=== PATIENT | female | born 1940 | race Caucasian/White ===

== ENCOUNTER 2017-10-23 22:04 | Emergency (ER) | payer MEDICARE, OTHER ==
[2017-10-23] MEDS ORDERED: Sodium Chloride 0.9% 10 ML Syringe FLUSH PRN (22:33)
[2017-10-23] MEDS ORDERED: GI Cocktail Oral Solution 30 ML PO ONE (22:33)
--- NOTE | 2017-10-23 22:41 | EDM.PDOC ---
ED HPI GENERAL MEDICAL PROBLEM - General Chief Complaint: Chest Pain Stated Complaint: chest pain Time Seen by Provider: 10/23/17 22:19 Source of Information: Reports: Patient History Limitations: Reports: No Limitations - History of Present Illness INITIAL COMMENTS - FREE TEXT/NARRATIVE: Patient presents to emergency room this evening with complaints of midsternal chest pain. She states that it started approximately 30-45 minutes ago. She states that she was watching TV in her recliner when it started. Patient reports her last meal being about 5:30 this evening. She does have a history of GERD. She is not endorse increased pain with movement, diaphoresis, shortness of breath, blood in her urine or stool, she also does not endorse nausea or vomiting. She does also state that she has some intermittent dizziness. Patient has medical history does include hypertension, hypercholesterolemia, urinary incontinence, hypothyroidism,diabetes, arthritis, chronic pain. She denies any prior myocardial infarctions or strokes. She also denies any current use of anticoagulation except for the use of daily baby aspirin's. Denies any history of irregular heartbeat. She states her mother had a stroke at the age of 78 but lived for another 8 years after that. Her father at the age of 93. She is not aware of any sibling history of heart disease. She is a nonsmoker. Rare alcohol use on social occasions. No illicit drug use. Patient's primary provider is in [place]. She has not frequented this hospital in quite some time. She does also state that the pain is reproducible substernally on palpation. She is also dealing with some new life stressors including the recent diagnosis of Alzheimer's in her . Onset: Today, Sudden Onset Date: 10/23/17 Onset Time: 21:45 Duration: Intermittent Location: Reports: Chest Quality: Reports: Other (cramp like) Severity: Moderate Improves with: Reports: None Worsens with: Reports: Other (palpation) Associated Symptoms: Reports: Chest Pain - Related Data Allergies Allergy/AdvReac Type Severity Reaction Status Date / Time atorvastatin [From Lipitor] Allergy Muscle Verified 10/23/17 22:12 Aches fluvastatin [From Lescol] Allergy Muscle Verified 10/23/17 22:12 Aches Home Meds: Home Meds Acetaminophen with Codeine [Acetaminophen-Cod #3] 1 - 2 tab PO Q4H PRN 10/23/17 [History] Aspirin [Halfprin] 81 mg PO DAILY 10/23/17 [History] Calcium Carbonate [Calci-Chew] 500 mg PO QID PRN 10/23/17 [History] Calcium Carbonate [Calcium] 600 mg PO BEDTIME 10/23/17 [History] Celecoxib [CeleBREX] 200 mg PO DAILY 10/23/17 [History] Cholecalciferol (Vitamin D3) [Vitamin D3] 1,000 units PO DAILY 10/23/17 [History ] Fenofibrate 160 mg PO BEDTIME 10/23/17 [History] Levothyroxine [Synthroid] 50 mcg PO BEDTIME 10/23/17 [History] Lisinopril 40 mg PO DAILY 10/23/17 [History] Multivitamin [Daily Lele] 1 each PO DAILY 10/23/17 [History] NIFEdipine [Procardia Xl] 60 mg PO DAILY 10/23/17 [History] Oxybutynin Chloride [Ditropan Xl] 10 mg PO DAILY 10/23/17 [History] Pantoprazole Sodium [Protonix] 40 mg PO DAILY 10/23/17 [History] Rosuvastatin [Crestor] 0.5 tab PO BEDTIME 10/23/17 [History] metFORMIN [Glucophage] 500 mg PO DAILY 10/23/17 [History] Past Medical History Cardiovascular History: Reports: High Cholesterol, Hypertension Gastrointestinal History: Reports: GERD Genitourinary History: Reports: Urinary Incontinence Musculoskeletal History: Reports: Osteoarthritis Psychiatric History: Reports: Anxiety Endocrine/Metabolic History: Reports: Diabetes, Type II, Hypothyroidism - Past Surgical History HEENT Surgical History: Reports: Cataract Surgery Musculoskeletal Surgical History: Reports: Arthroscopic Knee Social & Family History - Tobacco Use Smoking Status *Q: Never Smoker ED ROS GENERAL - Review of Systems Review Of Systems: ROS reveals no pertinent complaints other than HPI. ED EXAM, GENERAL - Physical Exam Exam: See Below Exam Limited By: No Limitations General Appearance: Alert, WD/WN, No Apparent Distress Eye Exam: Bilateral Eye: EOMI, PERRL Ears: Normal TMs Nose: Normal Inspection, Normal Mucosa, No Blood Throat/Mouth: Normal Inspection, Normal Lips, Normal Teeth, Normal Gums, Normal Oropharynx, Normal Voice, No Airway Compromise Head: Atraumatic, Normocephalic Neck: Normal Inspection, Supple, Non-Tender, Full Range of Motion Respiratory/Chest: No Respiratory Distress, Lungs Clear, Normal Breath Sounds, No Accessory Muscle Use, Chest Non-Tender Cardiovascular: Normal Peripheral Pulses, Regular Rate, Rhythm, No Edema, No Gallop, No JVD, No Murmur, No Rub Peripheral Pulses: 2+: Posterior Tibial (L), Posterior Tibial (R), Dorsalis Pedis (L), Dorsalis Pedis (R) GI/Abdominal: Normal Bowel Sounds, Soft, Non-Tender, No Organomegaly, No Distention, No Abnormal Bruit, No Mass Back Exam: Normal Inspection, Full Range of Motion, NT Extremities: Normal Inspection, Normal Range of Motion, Non-Tender, Normal Capillary Refill, No Pedal Edema Neurological: Alert, Oriented, CN II-XII Intact, Normal Cognition, Normal Gait, Normal Reflexes, No Motor/Sensory Deficits Psychiatric: Normal Affect, Normal Mood Skin Exam: Warm, Dry, Intact, Normal Color, No Rash Lymphatic: No Adenopathy EKG INTERPRETATION EKG Date: 10/23/17 Time: 22:07 Rhythm: NSR Rate (Beats/Min): 66 (with 1st degree AV block) [place]: Normal P-Wave: Present QRS: Normal ST-T: Normal QT: Normal Comparison: NA - No Prior EKG Course - Vital Signs Last Recorded V/S: Last Vital Signs Temp 36.8 C 10/23/17 22:12 Pulse 68 10/23/17 22:12 Resp 20 10/23/17 22:12 BP 177/78 H 10/23/17 22:12 Pulse Ox 100 10/23/17 22:12 - Re-Assessments/Exams Free Text/Narrative Re-Assessment/Exam: 10/23/17 23:45 X-ray, EKG, labs all negative for ACS type symptoms Departure - Departure Time of Disposition: 23:49 Disposition: Home, Self-Care 01 Condition: Good Clinical Impression: Atypical chest pain, Costochondral chest pain Instructions: Nonspecific Chest Pain, [id number], Costochondritis, Easy-to- Read Additional Instructions: All of your labs, x-ray, and ekg are negative for a heart attack this evening. Your chest pain could be the result of anxiety, inflammation of the tissue in between your ribs, arthritis. Take some tylenol for additional pain relief. Stay well hydrated. Follow up with your primary doctor as symptoms warrant. Please call us with any questions or concerns. Return as needed. - Problem List & Annotations (1) Atypical chest pain SNOMED Code(s): 048660972 Code(s): R07.89 - OTHER CHEST PAIN Status: Acute Priority: Low Current Visit: Yes (2) Costochondral chest pain SNOMED Code(s): 367109911 Code(s): R07.1 - CHEST PAIN ON BREATHING Status: Acute Priority: Low Current Visit: Yes - Problem List Review Problem List Initiated/Reviewed/Updated: Yes - Assessment/Plan Assessment:: costochondritis Plan: All of your labs, x-ray, and ekg are negative for a heart attack this evening. Your chest pain could be the result of anxiety, inflammation of the tissue in between your ribs, arthritis. Take some tylenol for additional pain relief. Stay well hydrated. Follow up with your primary doctor as symptoms warrant. Please call us with any questions or concerns. Return as needed.
[2017-10-23] MEDS ORDERED: Morphine 2 MG/ML Syringe IVPUSH ONE (23:07)
== END 2017-10-24 00:02 | disposition home or self-care (01) ==
LOC: VM.ED 22:04
DX: M94.0 Chondrocostal junction syndrome [Tietze] (principal); E11.9 Type 2 diabetes mellitus without complications; K21.9 Gastro-esophageal reflux disease without esophagitis; M19.90 Unspecified osteoarthritis, unspecified site; I10 Essential (primary) hypertension; E78.00 Pure hypercholesterolemia, unspecified; Z79.82 Long term (current) use of aspirin; Z79.899 Other long term (current) drug therapy; Z88.8 Allergy status to other drugs, medicaments and biological substances; Z79.84 Long term (current) use of oral hypoglycemic drugs
CPT/HCPCS: 71045; 80053; 84443; 84484; 85025; 85610; 93005; 96374; 99285; A9270; J2270; 99284-GF

== ENCOUNTER 2020-05-27 19:15 | Emergency (ER) | payer MEDICARE, OTHER ==
--- NOTE | 2020-05-27 19:54 | EDM.PDOC ---
ED HPI GENERAL MEDICAL PROBLEM - General Chief Complaint: General Stated Complaint: COVID positive Time Seen by Provider: 05/27/20 19:35 Source of Information: Reports: Patient History Limitations: Reports: No Limitations - History of Present Illness INITIAL COMMENTS - FREE TEXT/NARRATIVE: Veena is an 80 year old female who presents with complaints of chest tightness. States has had since Friday, not improving or worsening. Has been checking her oxygen sat at home and has consistently been 97-98%. had been taking Mucinex at home. Relates did receive a positive COVID result yesterday after being done on Friday. Probable exposure was on Friday at a restaurant. States several other ladies at the table also tested positive but many don't have symptoms. She denies sinus congestion. Does note PND. Temp at high has been 99.8. Minimal cough. States chest feels heavy. No sore throat, no nausea/vomiting/diarrhea. No loss of taste or smell. Contacted [facility] Ask a Nurse and was advised to be seen Duration: Day(s):, Constant Location: Reports: Chest Quality: Reports: Pressure Severity: Mild Worsens with: Reports: Movement Associated Symptoms: Reports: Cough, Fever/Chills, Malaise, Shortness of Breath. Denies: Confusion, Chest Pain, cough w sputum, Headaches, Loss of Appetite, Nausea/Vomiting - Related Data Allergies Allergy/AdvReac Type Severity Reaction Status Date / Time atorvastatin [From Lipitor] Allergy Muscle Verified 05/27/20 19:21 Aches fluvastatin [From Lescol] Allergy Muscle Verified 05/27/20 19:21 Aches Home Meds: Home Meds Aspirin [Halfprin] 81 mg PO DAILY 10/23/17 [History] Calcium Carbonate [Calci-Chew] 500 mg PO QID PRN 10/23/17 [History] Calcium Carbonate [Calcium] 600 mg PO BEDTIME 10/23/17 [History] Celecoxib [CeleBREX] 200 mg PO DAILY 10/23/17 [History] Cholecalciferol (Vitamin D3) [Vitamin D3] 1,000 units PO DAILY 10/23/17 [History] Levothyroxine [Synthroid] 50 mcg PO BEDTIME 10/23/17 [History] Lisinopril 40 mg PO DAILY 10/23/17 [History] Multivitamin [Daily Lele] 1 each PO BID 10/23/17 [History] Oxybutynin Chloride [Ditropan Xl] 10 mg PO DAILY 10/23/17 [History] Pantoprazole Sodium [Protonix] 40 mg PO DAILY 10/23/17 [History] Rosuvastatin [Crestor] 0.5 tab PO BEDTIME 10/23/17 [History] metFORMIN [Glucophage] 500 mg PO DAILY 10/23/17 [History] Doxazosin Mesylate [Cardura] 2 mg PO DAILY 05/27/20 [History] amLODIPine Besylate [Amlodipine Besylate] 10 mg PO BEDTIME 05/27/20 [History] Past Medical History Cardiovascular History: Reports: High Cholesterol, Hypertension Gastrointestinal History: Reports: GERD Genitourinary History: Reports: Urinary Incontinence Musculoskeletal History: Reports: Osteoarthritis Psychiatric History: Reports: Anxiety Endocrine/Metabolic History: Reports: Diabetes, Type II, Hypothyroidism - Past Surgical History HEENT Surgical History: Reports: Cataract Surgery Musculoskeletal Surgical History: Reports: Arthroscopic Knee, Other (See Below) Other Musculoskeletal Surgeries/Procedures:: both knees done Social & Family History - Tobacco Use Smoking Status *Q: Never Smoker ED ROS GENERAL - Review of Systems Review Of Systems: See Below Constitutional: Reports: Fever, Chills, Malaise, Weakness, Fatigue. Denies: Decreased Appetite HEENT: Reports: Rhinitis. Denies: Ear Pain, Sinus Problem, Throat Pain Respiratory: Reports: Shortness of Breath, Cough. Denies: Sputum Cardiovascular: Denies: Chest Pain, Edema, Lightheadedness Endocrine: Reports: Fatigue GI/Abdominal: Reports: Decreased Appetite. Denies: Abdominal Pain, Nausea, Vomiting : Reports: No Symptoms Musculoskeletal: Reports: No Symptoms Skin: Reports: No Symptoms Neurological: Reports: Weakness ED EXAM, GENERAL - Physical Exam Exam: See Below Exam Limited By: No Limitations General Appearance: Alert, WD/WN, No Apparent Distress Ears: Normal External Exam, Normal TMs Nose: Normal Inspection, Normal Mucosa, No Blood, Clear Rhinorrhea Throat/Mouth: Normal Inspection, Normal Oropharynx Head: Normocephalic Neck: Normal Inspection, Supple, Non-Tender Respiratory/Chest: No Respiratory Distress, Lungs Clear, Normal Breath Sounds Cardiovascular: Regular Rate, Rhythm GI/Abdominal: Normal Bowel Sounds, Soft, Non-Tender Neurological: Alert, Oriented Skin Exam: Warm, Dry Course - Vital Signs Last Recorded V/S: Last Vital Signs Temp 98.2 F 05/27/20 19:22 Pulse 63 05/27/20 19:22 Resp 20 05/27/20 19:22 BP 153/68 H 05/27/20 19:22 Pulse Ox 98 05/27/20 19:22 - Orders/Labs/Meds Orders: Active Orders 24 hr Category Date Time Status Chest 1V Frontal [CR] Stat Exams 05/27/20 19:31 Taken Labs: Laboratory Tests 05/27/20 05/27/20 05/27/20 Range/Units 19:55 19:55 19:55 WBC 4.7 (4.0-10.0) x10^3/uL RBC 4.45 (4.00-5.50) x10^6/uL Hgb 13.0 (12.0-16.0) g/dL Hct 39.1 (33.0-47.0) % MCV 87.9 (78.0-93.0) fL MCH 29.2 (26.0-32.0) pg MCHC 33.2 (32.0-36.0) g/dL RDW Coeff of Taryn 15.1 H (10.0-15.0) % Plt Count 215 D (130-400) x10^3/uL Neut % (Auto) 32.9 L (50.0-80.0) % Lymph % (Auto) 55.5 H (25.0-50.0) % Schuyler % (Auto) 11.2 H (2.0-11.0) % Eos % (Auto) 0.2 (0.0-4.0) % Baso % (Auto) 0.2 (0.2-1.2) % D-Dimer, Quantitative 0.49 (<=0.58) mg/LFEU Sodium 140 (136-145) mmol/L Potassium 4.3 (3.5-5.1) mmol/L Chloride 104 (98-107) mmol/L Carbon Dioxide 21 (21-32) mmol/L Anion Gap 19.3 (10-20) mmol/L BUN 27 H (7-18) mg/dL Creatinine 1.1 H (0.55-1.02) mg/dL Est Cr Clr Drug Dosing TNP Estimated GFR (MDRD) 48 Glucose 107 H (74-106) mg/dL Calcium 8.9 (8.5-10.1) mg/dL Corrected Calcium 9.22 (8.5-10.1) mg/dL Total Bilirubin 0.3 (0.2-1.0) mg/dL AST 34 (15-37) U/L ALT 43 (14-59) U/L Alkaline Phosphatase 69 (46-116) U/L Troponin I < 0.017 (<=0.056) ng/mL C-Reactive Protein 0.4 (<=0.9) mg/dL Total Protein 7.0 (6.4-8.2) g/dL Albumin 3.6 (3.4-5.0) g/dL Globulin 3.4 Albumin/Globulin Ratio 1.06 - Re-Assessments/Exams Free Text/Narrative Re-Assessment/Exam: 05/27/20 20:35 Labs are all normal. Chest xray does not show infiltrate. Discussed results with patient. Advised to use ProAir inhaler as needed. Monitor oxygen sats at home and return if worsening symptoms or changes Departure - Departure Time of Disposition: 20:37 Disposition: Home, Self-Care 01 Condition: Good Clinical Impression: COVID-19 - Discharge Information *PRESCRIPTION DRUG MONITORING PROGRAM REVIEWED*: No *COPY OF PRESCRIPTION DRUG MONITORING REPORT IN PATIENT MITCHEL: No Instructions: Prevent the Spread of COVID-19 if You Are Sick - CDC, COVID-19 Referrals: Yessy Alberts MD [Primary Care Provider] - Forms: ED Department Discharge Additional Instructions: 1. Push fluids 2. Rest 3. Albuterol inhaler 1-2 puffs as needed for shortness of breath or wheezing 4. Monitor oxygen sats as needed 5. Return if worsening symptoms or concerns. Sepsis Event Note (ED) - Evaluation Sepsis Screening Result: No Definite Risk - Focused Exam Vital Signs: Vital Signs Temp Pulse Resp BP Pulse Ox 05/27/20 19:22 98.2 F 63 20 153/68 H 98 - Problem List & Annotations (1) COVID-19 SNOMED Code(s): 199365277 Code(s): U07.1 - COVID-19 Status: Acute Priority: High Current Visit: Yes - Problem List Review Problem List Initiated/Reviewed/Updated: Yes - My Orders Last 24 Hours: My Active Orders 05/27/20 19:31 Chest 1V Frontal [CR] Stat - Assessment/Plan Admission H&P: Please use this note as an admission H&P Last 24 Hours: My Active Orders 05/27/20 19:31 Chest 1V Frontal [CR] Stat
[2020-05-27 20:28] LABS: CHLORIDE,CL 104 mmol/L (98-107); SODIUM,NA 140 mmol/L (136-145)
[2020-05-27 20:30] LABS: ANION GAP 19.3 mmol/L (10-20)
[2020-05-27] MEDS ORDERED: Take Home: Albuterol 18 GM Inhaler, 1 Inhaler Pack INH PRN (20:39)
--- NOTE | 2020-05-27 23:08 | CR ---
[id number] RAD/RAD Chest PA or AP 1V EXAM: SINGLE VIEW CHEST. INDICATION: POSITIVE COVID SHORTNESS OF BREATH COMPARISON: CORRELATION IS MADE WITH OCTOBER 23, 2017 FINDINGS: The lungs are clear The cardiac silhouette is stable IMPRESSION: NO PNEUMONIA IDENTIFIED Ricco Mcgregor MD 05/27/20 [id number] Thank you for allowing us to participate in the care of your patient.
== END 2020-05-27 20:55 | disposition home or self-care (01) ==
LOC: VM.ED 19:15
DX: U07.1 COVID-19 (principal); E78.00 Pure hypercholesterolemia, unspecified; I10 Essential (primary) hypertension; K21.9 Gastro-esophageal reflux disease without esophagitis; M19.90 Unspecified osteoarthritis, unspecified site; F41.9 Anxiety disorder, unspecified; E11.9 Type 2 diabetes mellitus without complications; Z88.8 Allergy status to other drugs, medicaments and biological substances; Z79.82 Long term (current) use of aspirin; Z79.84 Long term (current) use of oral hypoglycemic drugs; Z79.899 Other long term (current) drug therapy
CPT/HCPCS: 71045; 80053; 84484; 85025; 85379; 86140; 99284; 99285; A9270; 36415

== ENCOUNTER 2024-07-24 14:08 | Emergency (ER) | payer MEDICARE, OTHER ==
[2024-07-24] MEDS ORDERED: Sodium Chloride 0.9% 10 ML Syringe FLUSH PRN (14:17)
[2024-07-24 14:26] LABS: BASOPHILS PERCENT AUTO 0.2 % (0.2-1.2); EOSINOPHILS ABSOLUTE AUTO 0.1 x10^3/uL (0.0-0.5); EOSINOPHILS PERCENT AUTO 1.2 % (0.0-4.0); HEMATOCRIT 35.5 % (33.0-47.0); HEMOGLOBIN 11.8 g/dL (12.0-16.0); IMMATURE GRAN ABSOLUTE AUTO 0.01 x10^3/uL (0.00-0.07); LYMPHOCYTES ABSOLUTE AUTO 4.6 x10^3/uL (1.0-4.8); LYMPHOCYTES PERCENT AUTO 46.7 % (25.0-50.0); MEAN CORPUSCULAR HEMOGLOBIN 30.6 pg (26.0-32.0); MEAN CORPUSCULAR HGB CONC 33.2 g/dL (32.0-36.0); MEAN CORPUSCULAR VOLUME 92.2 fL (78.0-93.0); MONOCYTES ABSOLUTE AUTO 1.1 x10^3/uL (0.0-0.8); MONOCYTES PERCENT AUTO 11.2 % (2.0-11.0); NEUTROPHILS PERCENT AUTO 40.6 % (50.0-80.0); PLATELET COUNT,PLT 226 x10^3/uL (130-400); RED BLOOD CELL COUNT 3.85 x10^6/uL (4.00-5.50); WHITE BLOOD CELL COUNT,WBC 9.9 x10^3/uL (4.0-10.0)
[2024-07-24 14:46] LABS: A/G RATIO 0.87; ALBUMIN 3.4 g/dL (3.4-5.0); BILIRUBIN TOTAL 0.4 mg/dL (0.2-1.0); CALCIUM 9.3 mg/dL (8.5-10.1); CREATININE 1.8 mg/dL (0.55-1.02); EST CRCL DRUG DOSING (CG) 22.22 mL/min; POTASSIUM,K 5.2 mmol/L (3.5-5.1); PROTEIN TOTAL,TP 7.3 g/dL (6.4-8.2)
[2024-07-24 14:47] LABS: ANION GAP 20.2 mmol/L (5-15)
[2024-07-24] MEDS: ceFAZolin 1 GM Vial IVPUSH ONE (14:47)
[2024-07-24] MEDS: fentaNYL 50 MCG/ML SDV IVPUSH ONE (14:47)
[2024-07-24] MEDS: Ondansetron 4 MG/2 ML SDV IVPUSH ONE (14:47)
[2024-07-24] MEDS ORDERED: Take Home: Amoxicillin 500 MG Cap, 2 Cap Pack PO ONE (15:51)
[2024-07-24] MEDS: Take Home: Acetaminophen/Codeine 300 MG/30 MG, 5 Tab Pack PO ONE (16:21)
[2024-07-24] MEDS: Diphtheria,Pertussis(Acell),Tetanus Vaccine 0.5 ML Syringe IM ONE (16:21)
[2024-07-24] MEDS: Take Home: Amoxicillin 875 MG Tab, 2 Tab Pack PO ONE (16:36)
== END 2024-07-24 16:36 | disposition home or self-care (01) ==
LOC: SUPCPDRO 14:08 → VM.ED 14:08
DX: S02.2XXA Fracture of nasal bones, initial encounter for closed fracture (principal); I10 Essential (primary) hypertension; E78.00 Pure hypercholesterolemia, unspecified; K21.9 Gastro-esophageal reflux disease without esophagitis; E11.9 Type 2 diabetes mellitus without complications; E03.9 Hypothyroidism, unspecified; Z79.899 Other long term (current) drug therapy; Z79.82 Long term (current) use of aspirin; Z79.890 Hormone replacement therapy; Z23 Encounter for immunization; Z79.84 Long term (current) use of oral hypoglycemic drugs; Z79.2 Long term (current) use of antibiotics; Z88.8 Allergy status to other drugs, medicaments and biological substances; W18.30XA Fall on same level, unspecified, initial encounter
CPT/HCPCS: 36415; 70450; 70486; 72125; 80053; 85025; 85610; 85730; 90471; 90715; 96374; 96375; 99284; 99284-25; A9270-GY; J0690; J2405; J3010

== ENCOUNTER 2025-07-14 09:24 | Emergency (ER) | payer MEDICARE, OTHER ==
[2025-07-14] MEDS ORDERED: Sodium Chloride 0.9% 10 ML Syringe FLUSH PRN (09:29)
[2025-07-14 09:52] LABS: BASOPHILS ABSOLUTE AUTO 0.0 x10^3/uL (0.0-0.2); BASOPHILS PERCENT AUTO 0.1 % (0.2-1.2); EOSINOPHILS ABSOLUTE AUTO 0.0 x10^3/uL (0.0-0.5); EOSINOPHILS PERCENT AUTO 0.2 % (0.0-4.0); IMMATURE GRAN ABSOLUTE AUTO 0.05 x10^3/uL (0.00-0.07); IMMATURE GRAN PERCENT AUTO 0.30 % (0.00-0.43); LYMPHOCYTES ABSOLUTE AUTO 1.9 x10^3/uL (1.0-4.8); LYMPHOCYTES PERCENT AUTO 11.1 % (25.0-50.0); MONOCYTES ABSOLUTE AUTO 1.2 x10^3/uL (0.0-0.8); MONOCYTES PERCENT AUTO 7.1 % (2.0-11.0); NEUTROPHILS ABSOLUTE AUTO 13.7 x10^3/uL (1.8-7.7); NEUTROPHILS PERCENT AUTO 81.2 % (50.0-80.0); PLATELET COUNT,PLT 223 x10^3/uL (130-400); RED BLOOD CELL COUNT 4.01 x10^6/uL (4.00-5.50); WHITE BLOOD CELL COUNT,WBC 16.8 x10^3/uL (4.0-10.0)
[2025-07-14 10:10] LABS: A/G RATIO 0.89; ALANINE AMINOTRANSFERASE,ALT 24 U/L (14-59); ASPARTATE AMNIOTRANSFERASE,AST 19 U/L (15-37); BILIRUBIN TOTAL 0.6 mg/dL (0.2-1.0); BLOOD UREA NITROGEN,BUN 27 mg/dL (7-18); CARBON DIOXIDE,CO2 19 mmol/L (21-32); CHLORIDE,CL 104 mmol/L (98-107); CREATININE 1.3 mg/dL (0.55-1.02); ESTIMATED GFR 40 mL/min (>=60); GLUCOSE RANDOM 177 mg/dL (70-99); POTASSIUM,K 4.6 mmol/L (3.5-5.1); PROTEIN TOTAL,TP 7.0 g/dL (6.4-8.2); SODIUM,NA 135 mmol/L (136-145)
[2025-07-14 10:39] LABS: APPEARANCE,URINE SLIGHTLY CLOUDY (CLEAR); GLUCOSE,URINE NEGATIVE (NEGATIVE); OCCULT BLOOD,URINE SMALL (NEGATIVE)
[2025-07-14 10:47] LABS: SQUAMOUS EPITHELIAL CELLS,UR FEW /HPF (NOT SEEN)
== END 2025-07-14 11:00 | disposition home or self-care (01) ==
LOC: VM.ED 09:24
DX: N30.00 Acute cystitis without hematuria (principal); I10 Essential (primary) hypertension; E78.00 Pure hypercholesterolemia, unspecified; K21.9 Gastro-esophageal reflux disease without esophagitis; E11.9 Type 2 diabetes mellitus without complications; E03.9 Hypothyroidism, unspecified; Z79.82 Long term (current) use of aspirin; Z79.899 Other long term (current) drug therapy; Z79.84 Long term (current) use of oral hypoglycemic drugs; Z88.8 Allergy status to other drugs, medicaments and biological substances
CPT/HCPCS: 80053; 81001; 83605; 83735; 85025; 87086; 87088; 87186; 87428-QW; 96360; 99284-25; J7030